=== PATIENT | female | born 1965 | race Caucasian/White ===

== ENCOUNTER 2016-05-03 16:56 | Observation (INO) | payer OTHER ==
[2016-05-03] MEDS ORDERED: Sodium Chloride 0.9% 1000 ML 1,000 ML IV STA (16:59)
[2016-05-03] MEDS ORDERED: Keppra 500 MG/5 ML*** 500 MG in D5w 100ML Mini Bag 100 ML 100 ML IV ONE (17:01)
[2016-05-03 17:13] LABS: ARTERIAL BLD GAS O2 SATURATION 99.7 % (95-100); ARTERIAL BLOOD GAS BASE EXCESS -2.5 (-2.0-2.0); ARTERIAL BLOOD GAS PO2 139 mmHg (75-100); ARTERIAL BLOOD GAS pH 7.37 (7.35-7.45)
[2016-05-03 17:14] LABS: A-aADO2 19; ALLEN TEST OK? YES; ARTERIAL BLOOD GAS FIO2 28 %
[2016-05-03] MEDS ORDERED: Keppra 500 MG/5 ML ONE (17:17)
[2016-05-03] MEDS ORDERED: Sodium Chloride 0.9% 1000 ML 1,000 ML ONE (17:17)
[2016-05-03] MEDS ORDERED: D5w 100ML Mini Bag 100 ML 100 ML IV ONE (17:18)
--- NOTE | 2016-05-03 17:18 | ERPHSYRPT ---
- History of Present Illness Time Seen by Provider: 05/03/16 16:59 Source: patient, EMS (versed 2mg IV given MANAGER PROJECT, Accu checkok) Patient Subjective Stated Complaint: PT BROUGHT TO ED PER EMS REPORTS WAS CALLED TO SCENE FOR PT HAVING A SEIZURE-RP REPORTS WAS HAVING FULL BODY CONVULSIONS-UPON EMS ARRIVAL PT WAS COMBATIVE-HITTING HEAD OFF OF THINGS ET BEING INCOHERANT-PT GIVEN VERSED WITH IMPROVEMENT Triage Nursing Assessment: PT ARRIVED TO ED SLOW TO ANSWER QUESTIONS BUT ANSWERS CORRECTLY-RESP NONLABORED-PUPIL SLUGGISH-ABLE TO MOVE EXTREMITES ET FOLLOW COMMANDS Physician History: CC: altered mental status Hx: 51 y/o patient brought to ER per EMS. She has hx of polysubstance use and bipolar. No hx of seizures known. She was reported to be acting unusual, jerking , urinary incontinence, and agitated. EMS noted tachy, uncooperative, banging head on stretcher. She was given versed MANAGER PROJECT and she improved. Pt unable to give much hx. Timing/Duration: today Allergies/Adverse Reactions: No Known Drug Allergies Allergy (Verified 05/03/16 17:08) Home Medications: Morphine Sulfate [Morphine Sulfate ER] 15 mg PO BID 05/03/16 [History] Hx Tetanus, Diphtheria Vaccination/Date Given: Yes Hx Influenza Vaccination/Date Given: No Hx Pneumococcal Vaccination/Date Given: No Immunizations Up to Date: Yes - Review of Systems Constitutional: No Fever Eyes: Vision Changes Respiratory: No Cough, No Dyspnea Cardiac: No Chest Pain Abdominal/Gastrointestinal: No Abdominal Pain, No Nausea, No Vomiting Neurological: Seizure, No Focal Weakness, No Headache, No Paralysis All Other Systems: Unable due to condition - Past Medical History Pertinent Past Medical History: Yes Neurological History: Other ENT History: No Pertinent History Cardiac History: No Pertinent History Respiratory History: No Pertinent History Endocrine Medical History: No Pertinent History Musculoskeletal History: Other GI Medical History: No Pertinent History History: Other Psycho-Social History: Anxiety, Depression, Other Female Reproductive Disorders: No Pertinent History Other Medical History: schizophrenia old chart shows history of alcoholism - Past Surgical History Past Surgical History: No Neuro Surgical History: No Pertinent History Cardiac: No Pertinent History Respiratory: No Pertinent History Gastrointestinal: No Pertinent History Genitourinary: No Pertinent History Musculoskeletal: No Pertinent History Female Surgical History: No Pertinent History Other Surgical History: PT DENIES - Social History Smoking Status: Current every day smoker How long have you smoked: YRS Exposure to second hand smoke: No Drug Use: none Patient Lives Alone: Yes - Female History Hx Now: No - Nursing Vital Signs Nursing Vital Signs: Initial Vital Signs Temperature 98.7 F Temperature Source Rectal Pulse Rate 97 Respiratory Rate 22 Blood Pressure [] 120/70 Pain Intensity 0 - Physical Exam General Appearance: alert Eye Exam: PERRL/EOMI Ears, Nose, Throat Exam: dry mucous membranes Neck Exam: non-tender, supple, No meningismus Respiratory Exam: normal breath sounds, lungs clear, No respiratory distress Cardiovascular Exam: regular rate/rhythm Gastrointestinal/Abdomen Exam: soft, No tenderness, No distention Back Exam: normal inspection Extremity Exam: normal range of motion Neurologic Exam: alert, cooperative (partially), No motor deficits Skin Exam: pale SpO2 Interpretation: normal SpO2: 98 Oxygen Delivery: Room Air - Course Nursing assessment & vital signs reviewed: Yes EKG Interpreted by Me: RATE (112), Sinus Tach, NORMAL AXIS, prolonged QT interval (503), Non-specific ST Changes - Radiology Exams cxr X-ray Interpretation: Reviewed by me, Negative (COPD) - CT Exams head CT Interpretation: Negative, Tele-radiologist Report Ordered Tests: Active Orders 24 hr Category Date Time Status Forging Die Sinker STAT Care 05/03/16 16:59 Active Cath for Specimen-Straight STAT Care 05/03/16 16:59 Active EKG-ER Only STAT Care 05/03/16 16:59 Active IV Insertion STAT Care 05/03/16 16:59 Active Rectal Temperature STAT Care 05/03/16 17:01 Active Seizure Precautions -SCCHED STAT Care 05/03/16 17:01 Active CHEST 1 VIEW (PORTABLE) Stat Exams 05/03/16 17:00 Taken HEAD WITHOUT CONTRAST [CT] Stat Exams 05/03/16 17:00 Taken ACETAMINOPHEN Stat Lab 05/03/16 17:13 Completed ARTERIAL BLOOD GASES Urgent Lab 05/03/16 17:10 Completed CBC W DIFF Stat Lab 05/03/16 17:13 Completed CMP Stat Lab 05/03/16 17:13 Completed CULTURE,URINE Stat Lab 05/03/16 17:00 Received Ethyl Alcohol,Urine Stat Lab 05/03/16 17:30 Completed SALICYLATE Stat Lab 05/03/16 17:13 Completed UA W/ MICROSCOPIC Stat Lab 05/03/16 17:00 Completed Urine Triage Profile Stat Lab 05/03/16 17:00 Completed Medication Summary Discontinued Medications Generic Name Dose Route Start Last Admin Trade Name Poly PRN Reason Stop Dose Admin Levetiracetam 500 mg/ Dextrose 105 mls @ 400 mls/hr 05/03/16 17:01 05/03/16 17:28 IV 05/03/16 17:16 400 mls/hr STAT ONE Administration Sodium Chloride 1,000 mls @ 999 mls/hr 05/03/16 16:59 05/03/16 17:28 Sodium Chloride 0.9% 1000 Ml IV 05/03/16 17:59 999 mls/hr .Q1H1M STA Administration Sodium Chloride Confirm 05/03/16 17:17 Sodium Chloride 0.9% 1000 Ml Administered 05/03/16 17:18 Dose 1,000 mls @ ud .ROUTE .STK-MED ONE Dextrose Confirm 05/03/16 17:18 D5w 100ml Mini Bag 100 Ml Administered 05/03/16 17:19 Dose 100 mls @ ud IV .STK-MED ONE Levetiracetam Confirm 05/03/16 17:17 Keppra 500 Mg/5 Ml Administered 05/03/16 17:18 Dose 500 mg .ROUTE .STK-MED ONE Lab/Rad Data: Laboratory Result Diagrams 05/03/16 17:13 05/03/16 17:13 Laboratory Results 05/03/16 05/03/16 05/03/16 Range/Units 17:30 17:13 17:13 WBC 7.6 (4.0-10.5) K/mm3 RBC 4.09 L (4.1-5.4) M/mm3 Hgb 13.6 (12.0-16.0) gm/dl Hct 39.4 (35-47) % MCV 96.3 (78-100) fl MCH 33.2 H (26-32) pg MCHC 34.5 (32-36) g/dl RDW 12.4 (11.5-14.0) % Plt Count 168 (150-450) K/mm3 MPV 11.2 H (6-9.5) fl Gran % 74.9 H (36.0-66.0) % Lymphocytes % 18.3 L (24.0-44.0) % Monocytes % 6.6 (0.0-12.0) % Eosinophils % 0.1 (0.00-5.0) % Basophils % 0.1 (0.0-0.4) % Basophils # 0.01 (0-0.4) Puncture Site pCO2 (35-45) mmHg pO2 (75-100) mmHg Base Excess (-2.0-2.0) O2 Saturation (94-100) g/dF ABG pH (7.35-7.45) ABG HCO3 (22-28) ABG O2 Sat (Measured) (95-100) % ABG O2 Content % vol Tiburcio Test A-a Gradient a/A Ratio Hemoglobin Carboxyhemoglobin (0.0-6.9) % THgb Methemoglobin (1.4-1.5) % Potassium 3.2 L (3.5-5.1) POC O2 Flow Rate % Sodium 141 (136-145) mEq/L Chloride 101 (98-107) mEq/L Carbon Dioxide 21.4 (23-27) mEq/L Anion Gap 21.4 H (5-15) MEQ/L BUN 13 (9-20) mg/dL Creatinine 1.03 (0.55-1.30) mg/dl Estimated GFR 60 ML/MIN Glucose 177 H (70-110) MG/DL Calcium 9.3 (8.5-10.1) mg/dL Total Bilirubin 0.3 (0.2-1.0) mg/dL AST 19 (15-37) U/L ALT 18 (12-78) U/L Alkaline Phosphatase 92 (46-116) U/L Serum Total Protein 7.5 (6.4-8.2) gm/dL Albumin 4.3 (3.4-5.0) g/dL Ur Collection Type Urine Color (YELLOW) Urine Appearance (CLEAR) Urine pH 6.0 (5-6) Ur Specific Alna (1.005-1.025) Urine Protein (Negative) Urine Glucose (UA) (NEGATIVE) mg/dL Urine Ketones (NEGATIVE) Urine Nitrite (NEGATIVE) Urine Bilirubin (NEGATIVE) Urine Urobilinogen (0-1) mg/dL Urine WBC (Auto) (NEGATIVE) Urine RBC (Auto) (0-5) Nicanor/ul Urine Microscopic RBC (0-2) /HPF Urine Microscopic WBC (0-5) /HPF Ur Epithelial Cells (FEW) /HPF Urine Bacteria (NEGATIVE) /HPF Salicylates < 2.8 L (2.8-20.0) mg/dl Urine Opiates Level (NEGATIVE) Ur Methadone (NEGATIVE) Acetaminophen < 2.0 L (10-30) ug/ml Urine Barbiturates (NEGATIVE) Ur Phencyclidine (PCP) (NEGATIVE) Urine Amphetamine (NEGATIVE) U Benzodiazepine Level (NEGATIVE) Urine Cocaine (NEGATIVE) Urine Marijuana (THC) (NEGATIVE) Urine Ethyl Alcohol 4 (0.00-20) mg/dl Specimen Received 05/03/16 05/03/16 05/03/16 Range/Units 17:10 17:00 17:00 WBC (4.0-10.5) K/mm3 RBC (4.1-5.4) M/mm3 Hgb (12.0-16.0) gm/dl Hct (35-47) % MCV (78-100) fl MCH (26-32) pg MCHC (32-36) g/dl RDW (11.5-14.0) % Plt Count (150-450) K/mm3 MPV (6-9.5) fl Gran % (36.0-66.0) % Lymphocytes % (24.0-44.0) % Monocytes % (0.0-12.0) % Eosinophils % (0.00-5.0) % Basophils % (0.0-0.4) % Basophils # (0-0.4) Puncture Site LEFT RADIAL pCO2 39 (35-45) mmHg pO2 139 H* (75-100) mmHg Base Excess -2.5 L (-2.0-2.0) O2 Saturation 96.6 (94-100) g/dF ABG pH 7.37 (7.35-7.45) ABG HCO3 22.5 (22-28) ABG O2 Sat (Measured) 99.7 (95-100) % ABG O2 Content 28 % vol Tiburcio Test YES A-a Gradient 19 a/A Ratio 0.87 Hemoglobin 14 Carboxyhemoglobin 2.2 (0.0-6.9) % THgb Methemoglobin 1.0 L (1.4-1.5) % Potassium 3.1 L (3.5-5.1) POC O2 Flow Rate 28 % Sodium (136-145) mEq/L Chloride (98-107) mEq/L Carbon Dioxide 23 (23-27) mEq/L Anion Gap (5-15) MEQ/L BUN (9-20) mg/dL Creatinine (0.55-1.30) mg/dl Estimated GFR ML/MIN Glucose (70-110) MG/DL Calcium (8.5-10.1) mg/dL Total Bilirubin (0.2-1.0) mg/dL AST (15-37) U/L ALT (12-78) U/L Alkaline Phosphatase (46-116) U/L Serum Total Protein (6.4-8.2) gm/dL Albumin (3.4-5.0) g/dL Ur Collection Type CATH Urine Color YELLOW (YELLOW) Urine Appearance CLEAR (CLEAR) Urine pH 6.0 (5-6) Ur Specific Alna 1.010 (1.005-1.025) Urine Protein NEGATIVE (Negative) Urine Glucose (UA) NEGATIVE (NEGATIVE) mg/dL Urine Ketones NEGATIVE (NEGATIVE) Urine Nitrite NEGATIVE (NEGATIVE) Urine Bilirubin NEGATIVE (NEGATIVE) Urine Urobilinogen 0.2 (0-1) mg/dL Urine WBC (Auto) NEGATIVE (NEGATIVE) Urine RBC (Auto) MODERATE (0-5) Nicanor/ul Urine Microscopic RBC 0-2 (0-2) /HPF Urine Microscopic WBC 0-2 (0-5) /HPF Ur Epithelial Cells RARE (FEW) /HPF Urine Bacteria RARE (NEGATIVE) /HPF Salicylates (2.8-20.0) mg/dl Urine Opiates Level NEG. (NEGATIVE) Ur Methadone NEG. (NEGATIVE) Acetaminophen (10-30) ug/ml Urine Barbiturates NEG. (NEGATIVE) Ur Phencyclidine (PCP) NEG. (NEGATIVE) Urine Amphetamine NEG. (NEGATIVE) U Benzodiazepine Level POS. (NEGATIVE) Urine Cocaine NEG. (NEGATIVE) Urine Marijuana (THC) NEG. (NEGATIVE) Urine Ethyl Alcohol (0.00-20) mg/dl Specimen Received 05/03/16:1730 - Progress Progress Note: 05/03/16 18:46 Pt still a little confused but improved. She had versed in EMS. She is known to have multiple pain medications and alcohol use but unclear hx today from boyfriend and pt. Afebrile. 05/03/16 19:06 She is hungry. Friend left. She gives unclear hx. Appears to be seizure. Likely some sort of withdrawal. Called Dr Knox (oc) and will place in ICU observation. Counseled pt/family regarding: lab results, diagnosis, need for follow-up, rad results - Departure Time of Disposition: 19:07 Departure Disposition: Observation Clinical Impression: Seizure, polysubstance use Condition: Fair Critical Care Time: No
[2016-05-03 17:23] LABS: CARBON DIOXIDE 23 mEq/L (23-27)
[2016-05-03 17:38] LABS: BASOPHIL % 0.1 % (0.0-0.4); Eosinophil % 0.1 % (0.00-5.0); Granulocytes % 74.9 % (36.0-66.0); Lymphocytes % 18.3 % (24.0-44.0); Mean Cell Volume 96.3 fl (78-100); Mean Platelet Volume 11.2 fl (6-9.5); Monocytes % 6.6 % (0.0-12.0); Platelet Count 168 K/mm3 (150-450); Red Blood Count 4.09 M/mm3 (4.1-5.4); Red Cell Distribution Width 12.4 % (11.5-14.0); White Blood Count 7.6 K/mm3 (4.0-10.5)
[2016-05-03 17:39] LABS: Mean Corpuscular Hemoglobin 33.2 pg (26-32)
[2016-05-03 17:50] LABS: Bacteria RARE /HPF (NEGATIVE); COMPLETE URINE MICROSCOPIC? YES; Collection Type CATH; Epithelial Cells RARE /HPF (FEW); WBC 0-2 /HPF (0-5)
[2016-05-03 18:05] LABS: ALBUMIN 4.3 g/dL (3.4-5.0); ALKALINE PHOSPHATASE 92 U/L (46-116); ANION GAP 21.4 MEQ/L (5-15); BILIRUBIN,TOTAL 0.3 mg/dL (0.2-1.0); BLOOD UREA NITROGEN 13 mg/dL (9-20); CHLORIDE 101 mEq/L (98-107); Carbon Dioxide 21.4 mEq/L (21-32); Glucose 177 MG/DL (70-110); Potassium 3.2 mEq/L (3.5-5.1); SGOT/AST 19 U/L (15-37); SGPT/ALT 18 U/L (12-78); SODIUM 141 mEq/L (136-145); Total Protein 7.5 gm/dL (6.4-8.2)
[2016-05-03 18:06] LABS: ACETAMINOPHEN < 2.0 ug/ml (10-30)
[2016-05-03] MEDS ORDERED: Dextrose 5%-Lr IV Solution 1000 ML 1,000 ML IV SCH (20:24)
[2016-05-03] MEDS ORDERED: TYLENOL 325 MG PO PRN (20:24)
[2016-05-04] MEDS ORDERED: XANAX 1 MG PO ONE (05:13)
[2016-05-04 05:44] LABS: BASOPHIL % 0.1 % (0.0-0.4); Eosinophil % 0.5 % (0.00-5.0); Granulocytes % 67.2 % (36.0-66.0); Lymphocytes % 22.3 % (24.0-44.0); Mean Cell Volume 101.1 fl (78-100); Mean Corpuscular Hemoglobin 32.6 pg (26-32); Mean Platelet Volume 10.4 fl (6-9.5); Monocytes % 9.9 % (0.0-12.0); Platelet Count 209 K/mm3 (150-450); Red Blood Count 3.65 M/mm3 (4.1-5.4); Red Cell Distribution Width 12.7 % (11.5-14.0); White Blood Count 8.4 K/mm3 (4.0-10.5)
[2016-05-04 05:58] LABS: ALBUMIN 3.3 g/dL (3.4-5.0); ALKALINE PHOSPHATASE 70 U/L (46-116); ANION GAP 15.9 MEQ/L (5-15); BILIRUBIN,TOTAL 0.3 mg/dL (0.2-1.0); BLOOD UREA NITROGEN 12 mg/dL (9-20); CHLORIDE 107 mEq/L (98-107); Carbon Dioxide 24.1 mEq/L (21-32); Glucose 130 MG/DL (70-110); Potassium 3.6 mEq/L (3.5-5.1); SGOT/AST 20 U/L (15-37); SGPT/ALT 15 U/L (12-78); SODIUM 143 mEq/L (136-145)
--- NOTE | 2016-05-04 07:43 | PCM.HP ---
History of Present Illness - Chief Complaint Chief Complaint: seizure History of Present Illness: is a 51 year old female with no local doctor who was brought to ER by a friend who stated that she was shaking all over in the truck, concern for seizure. He is not present at the bedside today, she does not remember what happened yesterday. She denies any history of seizure in the past, no recent head injury or other concerns. She tells me that she is on xanax and pain pills but hasn't seen a doctor in "a couple of months" and is unable to relay dosages or other details. - Review of Systems Constitutional: No Fever, No Chills Respiratory: No Cough, No Short Of Breath Cardiac: No Chest Pain, No Edema, No Syncope Abdominal/Gastrointestinal: No Abdominal Pain, No Nausea, No Vomiting, No Diarrhea Neurological: Seizure Psychological: Anxiety, No Alcohol Abuse, No Drug Abuse All Other Systems: Reviewed and Negative Medications & Allergies Home Medications: Home Medication List Morphine Sulfate [Morphine Sulfate ER] 15 mg PO BID 05/03/16 [History Confirmed 05/03/16] Allergies/Adverse Reactions: Allergies Allergy/AdvReac Type Severity Reaction Status Date / Time No Known Drug Allergies Allergy Verified 05/03/16 17:08 - Past Medical History Past Medical History: Yes Neurological History: No Pertinent History, Other ENT History: No Pertinent History Cardiac History: No Pertinent History Respiratory History: No Pertinent History Endocrine Medical History: No Pertinent History Musculoskelatal History: Other GI Medical History: No Pertinent History History: Other Pyscho-Social History: Anxiety, Depression, Other Reproductive Disorders: No Pertinent History Comment: schizophrenia old chart shows history of alcoholism - Female History Are you now?: No - Past Surgical History Past Surgical History: No Neuro Surgical History: No Pertinent History Cardiac History: No Pertinent History Respiratory Surgery: No Pertinent History GI Surgical History: No Pertinent History Genitourinary Surgical Hx: No Pertinent History Musculskeletal Surgical Hx: No Pertinent History Female Surgical History: No Pertinent History Other Surgical History: PT DENIES - Social History Smoking Status: Current every day smoker How long have you smoked: 10 yrs Exposure to second hand smoke: Yes Alcohol: None, Occasionally Drug Use: none - Physical Exam Vital Signs: Vital Signs - 24 hr Temp Pulse Resp BP Pulse Ox 05/04/16 04:00 90 20 122/85 100 05/04/16 00:01 104 H 05/04/16 00:00 99.0 F 104 H 20 96/65 98 05/03/16 21:10 99 05/03/16 20:44 99.0 F 88 20 121/72 100 05/03/16 20:24 98 05/03/16 19:08 98 05/03/16 18:56 97 H 22 120/70 100 05/03/16 18:10 98 H 22 122/77 100 05/03/16 17:10 98.7 F 05/03/16 17:02 112 H 22 139/91 98 Oxygen-Last 24 hours O2 Percentage 2 Liters = 28% General Appearance: no apparent distress, alert Neurologic Exam: alert, oriented x 3, cooperative, normal mood/affect, nml cerebellar function, nml station & gait, sensation nml, No motor deficits Eye Exam: PERRL/EOMI, eyes nml inspection Respiratory Exam: normal breath sounds, lungs clear, No respiratory distress Cardiovascular Exam: regular rate/rhythm, normal heart sounds, normal peripheral pulses Gastrointestinal/Abdomen Exam: soft, normal bowel sounds, No tenderness, No mass Extremity Exam: normal inspection, normal range of motion, pelvis stable Skin Exam: normal color, warm, dry, No rash Results - Labs Lab/Micro Results: Lab Results-Last 24 Hours 05/04/16 05/04/16 Range/Units 05:10 05:10 WBC 8.4 (4.0-10.5) K/mm3 RBC 3.65 L (4.1-5.4) M/mm3 Hgb 11.9 L (12.0-16.0) gm/dl Hct 36.9 (35-47) % MCV 101.1 H (78-100) fl MCH 32.6 H (26-32) pg MCHC 32.2 (32-36) g/dl RDW 12.7 (11.5-14.0) % Plt Count 209 (150-450) K/mm3 MPV 10.4 H (6-9.5) fl Gran % 67.2 H (36.0-66.0) % Lymphocytes % 22.3 L (24.0-44.0) % Monocytes % 9.9 (0.0-12.0) % Eosinophils % 0.5 (0.00-5.0) % Basophils % 0.1 (0.0-0.4) % Basophils # 0.01 (0-0.4) Sodium 143 (136-145) mEq/L Potassium 3.6 (3.5-5.1) mEq/L Chloride 107 (98-107) mEq/L Carbon Dioxide 24.1 (21-32) mEq/L Anion Gap 15.9 H (5-15) MEQ/L BUN 12 (9-20) mg/dL Creatinine 0.83 (0.55-1.30) mg/dl Estimated GFR > 60 ML/MIN Glucose 130 H (70-110) MG/DL Calcium 8.2 L (8.5-10.1) mg/dL Total Bilirubin 0.3 (0.2-1.0) mg/dL AST 20 (15-37) U/L ALT 15 (12-78) U/L Alkaline Phosphatase 70 (46-116) U/L Serum Total Protein 6.0 L (6.4-8.2) gm/dL Albumin 3.3 L (3.4-5.0) g/dL Assessment/Plan (1) Seizure Current Visit: Yes Status: Acute Assessment & Plan: check EEG, upon review of [facility] patient filled a 30 day supply of xanax on filled by Dr Kay, however she told me she hadn't filled it in months. I confronted her after I found this information and she claims she doesn't remember if she filled it but states she doesn't have any. I informed her that she needs to followup with her primary doctor which she claims is Dr Henderson and not Dr Kay and that he took care of her for a recent hospitalization. I am concerned that she is abusing her meds, will not write for any controlled substances on discharge. Code(s): R56.9 - UNSPECIFIED CONVULSIONS (2) Altered mental status Current Visit: No Status: Acute Assessment & Plan: likely substance related in my opinion Code(s): R41.82 - ALTERED MENTAL STATUS, UNSPECIFIED (3) Back pain Current Visit: Yes Status: Acute Assessment & Plan: f/u with PCP Code(s): M54.9 - DORSALGIA, UNSPECIFIED
--- NOTE | 2016-05-04 08:32 | XRAY ---
Indication: Acute mental status change. Seizure. Comparison: November 06, 2013. Portable chest hyperinflated again with scattered calcified granulomas. No focal infiltrate, consolidation, or large effusion. Heart is not enlarged. Vascularity normal. Bony thorax intact with old right seventh rib fracture. Impression: Nonacute hyperinflated chest with chronic features.
--- NOTE | 2016-05-04 08:34 | XRAY ---
Indication: Acute mental status change. Seizure. Multiple contiguous axial images obtained through the head without contrast. Comparison: None Normal appearing brain parenchyma, ventricles, and bony calvarium. Visualized paranasal sinuses and mastoid air cells are pneumatized and clear. Impression: Normal CT head without contrast exam. Comment: Preliminary interpretation was made by [facility]. No discrepancy. CT DI 70.21
--- NOTE | 2016-05-04 13:07 | PCM.DCORD ---
- Discharge Disposition: Home, Self-Care Condition: Good Prescriptions: Continue Morphine Sulfate [Morphine Sulfate ER] 15 mg PO BID Additional Instructions: f/u with Dr Henderson tomorrow for medication update and further recommendations. Follow up with: NICK HENDERSON [Primary Care Provider] -
[2016-05-04 13:14] VITALS: BP 164/89; PULSE 103; O2SAT 99
== END 2016-05-04 14:10 | disposition home or self-care (01) ==
LOC: ED 16:56 → ICU 20:18
PROVIDERS: ADMIT Family Medicine; ATTEND Family Medicine
DX: R56.9 Unspecified convulsions (principal); R41.82 Altered mental status, unspecified; M54.9 Dorsalgia, unspecified
CPT/HCPCS: 36415; 36600; 70450; 71010; 80053; 80307; 80320; 81000; 82375; 82803; 83986; 85025; 87086; 93005; 93041; 95812; 96360; 96365; 99285; G0378; G0481; J1953; P9612